=== PATIENT | female | born 1970 | race Caucasian/White ===

== ENCOUNTER 2025-01-14 09:12 | Day surgery (SDC) | payer OTHER ==
[2025-01-14] VITALS (24 sets, daily range): BP systolic 94–175; BP diastolic 52–131
[~2025-01-14] VITALS: Ht 167.6 cm; Wt 136.0 kg
[~2025-01-14 09:12] MED LIST: AJOVY AUTO225 MG/1.1 SC; GLATIRAMER20 MG/1 ML SC; MAG GLYCINATE100 MG PO; Vitamin D1000 UNI1 PO
[2025-01-14] MEDS ORDERED: VITAMIN D5000 UNIT PO (09:57)
[2025-01-14] MEDS ORDERED: MAGNESIUM GLU27.5 M1 PO (09:58)
[2025-01-14] MEDS ORDERED: ALLERTEC PO (09:59)
--- NOTE | 2025-01-14 10:25 | NUR ---
Ambulatory in Day Surgery History, Chart, Medications and Allergies reviewed before start of procedure. Pre-Op teaching done. Pt verbalizes understanding. VANESSA
--- NOTE | 2025-01-14 11:08 | NUR ---
01/14/25 1108 Shaun Byrd MONITOR INTACT WITH CONTINUOUS PULSE OXIMETRY, CONTINUOUS END TITAL CO2, 3-LEAD EKG AND INTERMITTENT BLOOD PRESSURE.O2 VIA POM INTACT THROUGHOUT SEDATION/PROCEDURE. ANESTHESIA PER DR. CUNNINGHAM
--- NOTE | 2025-01-14 11:53 | NUR ---
Discharge instructions reviewed with patient. Patient verbalizes understanding. Copy given to patient to take home. Patient States Post-Procedure ride home has been arranged. Discharged via wheelchair to private car for ride home.
== END 2025-01-14 23:00 | disposition home or self-care (01) ==
LOC: ORSCMMR 09:12 → ORD 10:45 → ORSCMMR 10:45
PROVIDERS: Internal Medicine Gastroenterology
PROC: 0DBL8ZX Excision of Transverse Colon, Via Natural or Artificial Opening Endoscopic, Diagnostic (ICD-10-PCS; principal; 2025-01-14 10:45)
DX: Z12.11 Encounter for screening for malignant neoplasm of colon (principal); K63.5 Polyp of colon; D12.3 Benign neoplasm of transverse colon; K64.8 Other hemorrhoids; G35.D Multiple sclerosis, unspecified; E66.01 Morbid (severe) obesity due to excess calories; Z68.42 Body mass index [BMI] 45.0-49.9, adult; Z79.899 Other long term (current) drug therapy
CPT/HCPCS: 88305; J2704; J7120